=== PATIENT | male | born 1950 | race Native Hawaiian/Other Pacific Islander ===

== ENCOUNTER 2020-02-14 19:43 | Emergency (ER) | payer MEDICARE ==
[2020-02-14 20:11] LABS: Basophils % (Auto) 0.7 % (0.0-1.8); Eosinophils # (Auto) 0.1 K/mm3 (0.0-0.4); Eosinophils % (Auto) 2.6 % (0.0-4.3); Hematocrit 35.9 % (35.5-45.6); Hemoglobin 12.4 gm/dl (11.8-15.2); Lymphocytes # (Auto) 1.8 K/mm3 (1.2-5.4); Lymphocytes % (Auto) 38.2 % (13.4-35.0); Mean Corpuscular HGB Conc 35 % (32-34); Mean Corpuscular Volume 93 fl (84-94); Monocytes # (Auto) 0.5 K/mm3 (0.0-0.8); Monocytes % (Auto) 10.6 % (0.0-7.3); Platelet Count 128 K/mm3 (140-440); Red Blood Count 3.86 M/mm3 (3.65-5.03); Red Cell Distribution Width 14.8 % (13.2-15.2)
[2020-02-14 20:30] LABS: Alanine Aminotransferase 21 units/L (7-56); Albumin 3.5 g/dL (3.9-5); BUN/Creatinine Ratio 12; Blood Urea Nitrogen 23 mg/dL (9-20); Hemolysis Index 13
--- NOTE | 2020-02-15 00:29 | Emergency Department Report ---
ED General Adult HPI - General Chief complaint: Psych Stated complaint: PRISON PLACEMENT Time Seen by Provider: 02/14/20 19:52 Source: EMS Mode of arrival: Ambulatory Limitations: Physical Limitation - History of Present Illness Initial comments: The patient presents to the emergency department via EMS per the request of his daughter who is the patient's power of attorney recruiter. Patient was recently discharged from [facility] on February 07. Patient was sent to inpatient hospice at [facility] and from there it was determined that the patient was not a candidate for inpatient hospice and he was sent to [facility]. The patient's daughter called EMS today because she was concerned for his safety at the [facility] stating that he has the ability just to walk out at any time. Patient denies any suicidal homicidal ideation. Patient denies auditory visual hallucinations -: unknown Severity scale (0 -10): 0 Improves with: none Worsens with: none Associated Symptoms: denies other symptoms Treatments Prior to Arrival: none - Related Data Home Medications Medication Instructions Recorded Confirmed Last Taken AtorvaSTATin 10 mg PO QPM 02/02/20 02/02/20 Unknown Fludrocortisone [Florinef] 0.1 mg PO QDAY PRN 02/02/20 02/02/20 Unknown Memantine 10 mg PO BID 02/02/20 02/02/20 Unknown amLODIPine 2.5 mg PO QDAY PRN 02/02/20 02/02/20 Unknown clonazePAM [Klonopin] 1 mg PO BID 02/02/20 02/02/20 Unknown Previous Rx's Medication Instructions Recorded Last Taken Type VALPROIC ACID Liq [DepaKENE Liq] 500 mg PO BID #60 oral.liqd 02/08/20 Unknown Rx clonazePAM [KlonoPIN] 1 mg PO BID #30 tablet 02/08/20 Unknown Rx risperiDONE [RisperDAL] 2 mg PO BID #60 tablet 02/08/20 Unknown Rx traZODone [Desyrel] 50 mg PO QHS #30 tablet 02/08/20 Unknown Rx Allergies Allergy/AdvReac Type Severity Reaction Status Date / Time No Known Allergies Allergy Unverified 02/01/20 20:54 ED Review of Systems ROS: Stated complaint: PRISON PLACEMENT Other details as noted in HPI Comment: All other systems reviewed and negative Constitutional: denies: chills, fever Eyes: denies: eye pain, eye discharge, vision change ENT: denies: ear pain, throat pain Respiratory: denies: cough, shortness of breath, wheezing Cardiovascular: denies: chest pain, palpitations Endocrine: no symptoms reported Gastrointestinal: denies: abdominal pain, nausea, diarrhea Genitourinary: denies: urgency, dysuria Musculoskeletal: denies: back pain, joint swelling, arthralgia Skin: denies: rash, lesions Neurological: denies: headache, weakness, paresthesias Psychiatric: denies: anxiety, depression Hematological/Lymphatic: denies: easy bleeding, easy bruising ED Past Medical Hx - Past Medical History Previous Medical History?: Yes Hx Renal Disease: Yes (Kidney CA, Rt Kidney removed) Hx Arthritis: No Hx Seizures: No Hx Dementia: No Additional medical history: [place]'s Disease - Surgical History Past Surgical History?: Yes Additional Surgical History: Rt Kidney Removed - Social History Smoking Status: Former Smoker Substance Use Type: None - Medications Home Medications: Home Medications Medication Instructions Recorded Confirmed Last Taken Type AtorvaSTATin 10 mg PO QPM 02/02/20 02/02/20 Unknown History Fludrocortisone [Florinef] 0.1 mg PO QDAY PRN 02/02/20 02/02/20 Unknown History Memantine 10 mg PO BID 02/02/20 02/02/20 Unknown History amLODIPine 2.5 mg PO QDAY PRN 02/02/20 02/02/20 Unknown History clonazePAM [Klonopin] 1 mg PO BID 02/02/20 02/02/20 Unknown History VALPROIC ACID Liq [DepaKENE Liq] 500 mg PO BID #60 oral.liqd 02/08/20 Unknown Rx clonazePAM [KlonoPIN] 1 mg PO BID #30 tablet 02/08/20 Unknown Rx risperiDONE [RisperDAL] 2 mg PO BID #60 tablet 02/08/20 Unknown Rx traZODone [Desyrel] 50 mg PO QHS #30 tablet 02/08/20 Unknown Rx ED Physical Exam - General Limitations: Physical Limitation General appearance: alert, in no apparent distress - Head Head exam: Present: atraumatic, normocephalic - Eye Eye exam: Present: normal appearance, PERRL, EOMI - ENT ENT exam: Present: mucous membranes moist - Neck Neck exam: Present: normal inspection - Respiratory Respiratory exam: Present: normal lung sounds bilaterally. Absent: respiratory distress - Cardiovascular Cardiovascular Exam: Present: regular rate, normal rhythm. Absent: systolic murmur, diastolic murmur, rubs, gallop - GI/Abdominal GI/Abdominal exam: Present: soft, normal bowel sounds. Absent: distended, tenderness - Rectal Rectal exam: Present: deferred - Extremities Exam Extremities exam: Present: normal inspection - Back Exam Back exam: Present: normal inspection - Neurological Exam Neurological exam: Present: alert, oriented X3, CN II-XII intact. Absent: motor sensory deficit - Psychiatric Psychiatric exam: Present: normal affect, normal mood - Skin Skin exam: Present: warm, dry, intact, normal color. Absent: rash ED Course Vital Signs 02/14/20 02/14/20 19:47 19:57 Temperature 98.3 F Pulse Rate 76 Respiratory 18 16 Rate Blood Pressure 119/69 O2 Sat by Pulse 98 98 Oximetry ED Medical Decision Making - Lab Data Result diagrams: 02/14/20 19:57 02/14/20 19:57 Lab Results 02/14/20 02/14/20 02/14/20 Range/Units 19:57 19:57 19:57 WBC 4.8 (4.5-11.0) K/mm3 RBC 3.86 (3.65-5.03) M/mm3 Hgb 12.4 (11.8-15.2) gm/dl Hct 35.9 (35.5-45.6) % MCV 93 (84-94) fl MCH 32 (28-32) pg MCHC 35 H (32-34) % RDW 14.8 (13.2-15.2) % Plt Count 128 L (140-440) K/mm3 Lymph % (Auto) 38.2 H (13.4-35.0) % [place] % (Auto) 10.6 H (0.0-7.3) % Eos % (Auto) 2.6 (0.0-4.3) % Baso % (Auto) 0.7 (0.0-1.8) % Lymph # 1.8 (1.2-5.4) K/mm3 [place] # 0.5 (0.0-0.8) K/mm3 Eos # 0.1 (0.0-0.4) K/mm3 Baso # 0.0 (0.0-0.1) K/mm3 Seg Neutrophils % 47.9 (40.0-70.0) % Seg Neutrophils # 2.3 (1.8-7.7) K/mm3 Sodium 138 (137-145) mmol/L Potassium 4.0 (3.6-5.0) mmol/L Chloride 103.7 (98-107) mmol/L Carbon Dioxide 24 (22-30) mmol/L Anion Gap 14 mmol/L BUN 23 H (9-20) mg/dL Creatinine 2.0 H (0.8-1.3) mg/dL Estimated GFR 33 ml/min BUN/Creatinine Ratio 12 % Glucose 111 H (75-100) mg/dL Calcium 9.0 (8.4-10.2) mg/dL Total Bilirubin < 0.20 (0.1-1.2) mg/dL AST 16 (5-40) units/L ALT 21 (7-56) units/L Alkaline Phosphatase 94 (35-129) units/L Total Protein 5.6 L (6.3-8.2) g/dL Albumin 3.5 L (3.9-5) g/dL Albumin/Globulin Ratio 1.7 % Salicylates < 0.3 L (2.8-20.0) mg/dL Acetaminophen (10.0-30.0) ug/mL Plasma/Serum Alcohol (0-0.07) % 02/14/20 02/14/20 Range/Units 19:57 19:57 WBC (4.5-11.0) K/mm3 RBC (3.65-5.03) M/mm3 Hgb (11.8-15.2) gm/dl Hct (35.5-45.6) % MCV (84-94) fl MCH (28-32) pg MCHC (32-34) % RDW (13.2-15.2) % Plt Count (140-440) K/mm3 Lymph % (Auto) (13.4-35.0) % [place] % (Auto) (0.0-7.3) % Eos % (Auto) (0.0-4.3) % Baso % (Auto) (0.0-1.8) % Lymph # (1.2-5.4) K/mm3 [place] # (0.0-0.8) K/mm3 Eos # (0.0-0.4) K/mm3 Baso # (0.0-0.1) K/mm3 Seg Neutrophils % (40.0-70.0) % Seg Neutrophils # (1.8-7.7) K/mm3 Sodium (137-145) mmol/L Potassium (3.6-5.0) mmol/L Chloride (98-107) mmol/L Carbon Dioxide (22-30) mmol/L Anion Gap mmol/L BUN (9-20) mg/dL Creatinine (0.8-1.3) mg/dL Estimated GFR ml/min BUN/Creatinine Ratio % Glucose (75-100) mg/dL Calcium (8.4-10.2) mg/dL Total Bilirubin (0.1-1.2) mg/dL AST (5-40) units/L ALT (7-56) units/L Alkaline Phosphatase (35-129) units/L Total Protein (6.3-8.2) g/dL Albumin (3.9-5) g/dL Albumin/Globulin Ratio % Salicylates (2.8-20.0) mg/dL Acetaminophen 5.0 L (10.0-30.0) ug/mL Plasma/Serum Alcohol < 0.01 (0-0.07) % - Medical Decision Making Spoke to the patient's daughter whose name is Zahira at 7:57 PM. She states that she does not want the patient to go home and would like for him to be placed in a long-term care facility from the emergency department. She states that at times her father roams and this concerns her. She states her dad has a history of [place]'s disease and dementia. She expresses that she is the power of attorney recruiter for her father and will rather not have him discharged from the emergency department. I discussed with the daughter in detail that we would get a consult from case management but I cannot make any promises about the patient's disposition. Critical care attestation.: If time is entered above; I have spent that time in minutes in the direct care of this critically ill patient, excluding procedure time. ED Disposition Clinical Impression: [place] disease, Schizoaffective disorder Disposition: [id number]/TX-[id number] ANOTHER TYPE HLTHCARE Is pt being admited?: No Does the pt Need Aspirin: No Condition: Stable Referrals: PRIMARY CARE, [Primary Care Provider] - 3-5 Days
[2020-02-15] MEDS ORDERED: ALUM-MAG HYDROXIDE-SIMETHICONE 200-200-20MG/5ML ORAL LIQD 30 ML PO PRN (06:54)
[2020-02-15] MEDS ORDERED: ACETAMINOPHEN 325 MG TAB PO PRN (06:54)
[2020-02-15] MEDS ORDERED: MAGNESIUM HYDROXIDE (MOM) ORAL LIQD UDC PO PRN (06:54)
[2020-02-15] MEDS ORDERED: ZIPRASIDONE MESYLATE 20 MG VIAL IM PRN (06:55)
[2020-02-15 09:26] VITALS: BP 124/74
[2020-02-15] MEDS ORDERED: clonazePAM 0.5 MG TAB PO SCH (10:00)
[2020-02-15] MEDS ORDERED: VALPROIC ACID 250 MG CAP PO SCH (10:00)
[2020-02-15] MEDS ORDERED: risperiDONE 1 MG TAB PO SCH (10:00)
[2020-02-15] MEDS ORDERED: MEMANTINE 10 MG TAB PO SCH (10:00)
[2020-02-15] MEDS ORDERED: traZODone 50 MG TAB PO SCH (22:00)
== END 2020-02-15 18:25 | disposition other institution (70) ==
LOC: ED 19:43
DX: F25.8 Other schizoaffective disorders (principal); G10 Huntington's disease; Z87.891 Personal history of nicotine dependence
CPT/HCPCS: 36415; 80053; 80320; 85025; G0480